=== PATIENT | male | born 1960 | race Caucasian/White ===

== ENCOUNTER → 2018-03-18 | Outpatient (CLI) | payer OTHER ==
[~2018-03-18] VITALS: Ht 182.9 cm; Wt 93.0 kg
[~2018-03-18] MED LIST: Fioricet,Esgic,Repan PO; LABETALOL HCL100 MG PO; LIPITOR40 MG PO; Normodyne,Trandate PO; PROCARDIA XL90 MG PO; Percocet 5/325,Endoc PO; Procardia XL,Adalat PO; Tears Naturale II,Ar LEFT EYE; Topamax PO; no home meds
== END | disposition home or self-care (01) ==
LOC: AMB 12:12
PROC: 0DBP8ZX Excision of Rectum, Via Natural or Artificial Opening Endoscopic, Diagnostic (ICD-10-PCS; principal; 2018-03-18)
DX: Z12.11 Encounter for screening for malignant neoplasm of colon (principal); K62.1 Rectal polyp; K57.90 Diverticulosis of intestine, part unspecified, without perforation or abscess without bleeding; K64.8 Other hemorrhoids; I10 Essential (primary) hypertension; E78.5 Hyperlipidemia, unspecified; E66.9 Obesity, unspecified
CPT/HCPCS: 88305; J2250

== ENCOUNTER 2018-03-23 14:22 | Emergency (ER) | payer OTHER ==
[~2018-03-23] VITALS: Ht 182.9 cm; Wt 98.6 kg
[2018-03-23 15:15] LABS: APPEARANCE SL.HAZY ((CLEAR)); BILIRUBIN MODERATE; BLOOD NEGATIVE; COLOR AMBER ((YELLOW)); GLUCOSE (STRIP) NEGATIVE; KETONES 5; LEUKOCYTES NEGATIVE; NITRITE NEGATIVE; PROTEIN (STRIP) 100; SPECIFIC GRAVITY 1.035 (1.000-1.030)
[2018-03-23 15:16] LABS: ICTOTEST ND
[2018-03-23 15:19] LABS: HEMATOCRIT 55.9 % (38.0-50.0); HEMOGLOBIN 19.3 G/DL (12.5-16.6); MCH 28.9 PG (29.0-34.0); MCHC 34.5 G/DL (30.0-36.0); MCV 83.8 FL (86-99); PLATELET COUNT 227 K/uL (156-360); RBC DIS.WIDTH-CV 12.9 % (11.8-14.6); RBC DIS.WIDTH-SD 38.2 % (39-53); RED BLOOD COUNT 6.67 M/uL (4.00-5.50); WHITE BLOOD COUNT 10.8 K/uL (4.1-10.2)
[2018-03-23 15:22] LABS: ALBUMIN 4.5 g/dL (3.2-4.8); CHLORIDE 106 mEq/L (99-109); POTASSIUM 4.7 mEq/L (3.7-5.4); SODIUM 141 mEq/L (136-147)
[2018-03-23 15:24] LABS: GLUCOSE 138 mg/dL (70-99); TOTAL PROTEIN 7.4 g/dL (6.4-8.3)
[2018-03-23 15:26] LABS: TOTAL BILIRUBIN 0.9 mg/dL (0.0-1.0)
[2018-03-23 15:28] LABS: ALKALINE PHOSPHATASE 45 IU/L (3-129); CREATININE 1.4 mg/dL (0.6-1.3); GFR ESTIMATE (CALCULATED) 55 mL/min/ (58.99-99999)
[2018-03-23 15:29] LABS: UREA NITROGEN (BUN) 19 mg/dL (9-23)
[2018-03-23 15:30] LABS: AST (GOT) 18 IU/L (2-34)
[2018-03-23 15:31] LABS: ALT (GPT) 18 IU/L (3-49)
[2018-03-23 16:06] LABS: BACTERIA RARE /HPF; CALCIUM OXALATE CRYSTALS 1+ /HPF; EPITHELIAL CELLS 2+ /HPF; HYALINE CASTS 0-5 /LPF; MUCUS 2+ /LPF; RED BLOOD CELLS NONE SEEN /HPF (0-5); UCUL ADDED? NO; WHITE BLOOD CELLS NONE SEEN /HPF (0-5)
[2018-03-23 18:14] LABS: AMYLASE 97 IU/L (1-118)
[2018-03-23 18:23] LABS: LIPASE 30 U/L (1.0-51.0)
[2018-03-23] MEDS ORDERED: PERCOCET 5/31 TABLET PO (21:55)
[2018-03-23 22:21] VITALS: BP 169/102
== END 2018-03-23 22:31 | disposition home or self-care (01) ==
LOC: EME 14:22
DX: R10.84 Generalized abdominal pain (principal); N28.1 Cyst of kidney, acquired; K57.30 Diverticulosis of large intestine without perforation or abscess without bleeding; R18.8 Other ascites; I10 Essential (primary) hypertension
CPT/HCPCS: 74177; 80053; 81003; 82150; 83690; 85027; 99281; 99285; J2405; J3010; J7030